=== PATIENT | female | born 2000 | race Caucasian/White ===

== ENCOUNTER 2019-09-06 17:57 | Emergency (ER) | payer OTHER ==
[2019-09-06 18:02] VITALS: BP 128/78; PULSE 126; TEMP 98.7; BMI 35.8
--- NOTE | 2019-09-06 18:10 | PDOC ---
History of Present Illness - General Chief Complaint: Cold Symptoms Stated Complaint: VEVER Time Seen by Provider: 09/06/19 18:09 History Source: Patient - History of Present Illness Initial Comments: 09/06/19 19:08 Chief complaint: Cold symptoms Patient is a 19-year-old female, 35 weeks with no problems with the with 2 to 3 days of nasal congestion, cough, questionable fever. Patient took Tylenol last night, none today. Patient is able to eat and drink and appears well. GENERAL/CONSTITUTIONAL: No fever, weakness. dizziness HEAD, EYES, EARS, NOSE AND THROAT: No change in vision. No ear pain or discharge. +sore throat, nasal congestion CARDIOVASCULAR: No chest pain RESPIRATORY: No shortness of breath or cough GASTROINTESTINAL: No pain, nausea, vomiting, diarrhea or constipation GENITOURINARY: No dysuria MUSCULOSKELETAL: No neck or back pain SKIN: No rash NEUROLOGIC: No headache, vertigo, loss of consciousness, or loss of sensation. GENERAL: The patient is awake, alert, and fully oriented, in no acute distress. HEAD: Normal with no signs of trauma. EYES: Pupils equal, round and reactive to light, sclera anicteric, conjunctiva clear. ENT: pharynx: no erythema, no exudate, uvula midline NECK: supple CHEST: clear, nontender, rr ABD: soft, nontender BACK: no tenderness or signs of injury EXTREMITIES: Normal range of motion, no edema. NEUROLOGICAL: Normal speech, normal gait. SKIN: Warm, Dry Past History - Past Medical History Allergies/Adverse Reactions: Allergies Allergy/AdvReac Type Severity Reaction Status Date / Time No Known Allergies Allergy Verified 09/06/19 18:02 COPD: No - Psycho Social/Smoking Cessation Hx Smoking History: Never smoked *Physical Exam - Vital Signs Last Vital Signs Temp Pulse Resp BP Pulse Ox 98.7 F 126 H 18 128/78 97 09/06/19 17:59 09/06/19 17:59 09/06/19 17:59 09/06/19 17:59 09/06/19 17:59 Medical Decision Making - Medical Decision Making 09/06/19 19:09 19-year-old female, 35 weeks , no problems with the with 2 to 3 days of upper respiratory symptoms, sore throat and questionable fever. Did not take any antipyretics today will order Tylenol, discussed with patient doing strep and flu swab to determine if she needs any particular treatment. Strep and flu are negative, went to find patient, patient not in ER. Called patient on the phone she stated that the person in front told her she could leave so she left without results. Results given to patient over the phone instructions to take Tylenol every 4-6 hours and to return if worse and follow-up with her [facility] PROVIDER. Discharge - Discharge Information Problems reviewed: Yes Clinical Impression/Diagnosis: Upper respiratory infection Qualifiers: URI type: unspecified URI Qualified Code(s): J06.9 - Acute upper respiratory infection, unspecified Condition: Stable Disposition: HOME - Admission No - Follow up/Referral - Patient Discharge Instructions Additional Instructions: Drink 2-3 L of water daily Take Tylenol 650 mg every 4 hours for fever and pain Return to the nearest ER if short of breath, unable to swallow or feeling sicker Followup with your doctor in one to 2 days Patient left prior to getting instructions, these instructions were given to patient over the phone. - Post Discharge Activity
[2019-09-06] MEDS ORDERED: ACETAMINOPHEN 325 MG TABLET (FP) PO ONE (18:16)
[2019-09-06] MEDS ORDERED: ACETAMINOPHEN 325 MG TABLET (FP) ONE (18:28)
== END 2019-09-06 19:15 | disposition home or self-care (01) ==
LOC: JERFT 17:57
DX: O99.89 Other specified diseases and conditions complicating pregnancy, childbirth and the puerperium (principal); J06.9 Acute upper respiratory infection, unspecified; Z3A.35 35 weeks gestation of pregnancy
CPT/HCPCS: 87070; 87804; 87880; 99281-25